=== PATIENT | female | born 1965 | race Caucasian/White ===

== ENCOUNTER 2016-11-21 12:37 | Emergency (ER) | payer BC ==
[2016-11-21 12:56] VITALS: BP 107/78
--- NOTE | 2016-12-11 20:30 | UC ---
daria Wolff Timothy, scribed for Nohemy Wong DO on 11/21/16 at 1350 . Abdominal Pain Female HPI - HPI Summary HPI Summary: Anita Munguia is a 51 yo female presenting to with 8/10 gradually increasing RLQ pain radiating to her lower back and down the back of her right leg for the past 2 days. She states April of last year she fell while jogging, and felt something snap. The pain from that fall dissipated quickly, but she is wondering if her current pain is related to her accident. She states sometimes her right knee comes out of place at night while she sleeps, causing her pain. She denies any other Sx. Her MHx includes DM and HIV. - History of Current Complaint Chief Complaint: UCAbdominalPain Stated Complaint: ABDOMINAL AND LEG PAIN Time Seen by Provider: 11/21/16 13:44 Hx Obtained From: Patient Hx Last Menstrual Period: HYSTERECTOMY ?: No Onset/Duration: Sudden Onset, Lasting Days, Still Present Timing: Constant Severity Initially: Moderate Severity Currently: Moderate Pain Intensity: 8 Pain Scale Used: 0-10 Numeric Location: Discrete At: RLQ Radiates: Yes Radiates to: Back, Other - back of right leg Aggravating Factor(s): Other: - position when sleeping Alleviating Factor(s): Other: - position when sleeping Associated Signs and Symptoms: Negative: Fever, Chest Pain, Blood in Stool Allergies/Adverse Reactions: Allergies Allergy/AdvReac Type Severity Reaction Status Date / Time No Known Allergies Allergy Verified 12/07/16 15:53 Home Medications: Home Medications Actraphane 12 mg SUBCUT BID 11/21/16 [History] PMH/Surg Hx/FS Hx/Imm Hx Endocrine History Of: Reports: Diabetes - Surgical History Surgical History: Yes Surgery Procedure, Year, and Place: APPENDECTOMY, HYSTERECTOMY - Family History Known Family History: Positive: Diabetes Negative: Cardiac Disease, Hypertension - Social History Alcohol Use: Rare Substance Use Type: None Smoking Status (MU): Never Smoked Tobacco Review of Systems Constitutional: Negative Skin: Negative Eyes: Negative ENT: Negative Respiratory: Negative Cardiovascular: Negative Gastrointestinal: Abdominal Pain - raditing to back and back of right leg Genitourinary: Negative Motor: Negative Neurovascular: Negative Musculoskeletal: Other: - pain in right knee Neurological: Negative Psychological: Negative All Other Systems Reviewed And Are Negative: Yes Physical Exam Triage Information Reviewed: Yes Appearance: Well-Appearing, No Pain Distress, Well-Nourished Vital Signs: Initial Vital Signs Temp 98.3 F 11/21/16 12:50 Pulse 86 11/21/16 12:50 Resp 16 11/21/16 12:50 BP 107/78 11/21/16 12:50 Pulse Ox 100 11/21/16 12:50 Vital Signs Reviewed: Yes Eyes: Positive: Conjunctiva Clear. Negative: Discharge ENT: Positive: Hearing grossly normal. Negative: Muffled/hoarse voice Neck: Positive: Supple, Nontender Respiratory: Positive: Lungs clear, Normal breath sounds, No respiratory distress, No accessory muscle use Cardiovascular: Positive: RRR, No Murmur Abdomen Description: Positive: Nontender, Soft, Other: - palpatory exam in the recumbent position was negative. Negative: Distended, Guarding Bowel Sounds: Positive: Present Musculoskeletal: Positive: ROM Limited @ - forward and backward bending, left side bending, Other: - piriformis tender point. Perispinal spasm in the lumbar region. Negative: ROM Intact Neurological Exam: Normal - A&Ox3, CN II-XII INTACT, SENSORY MOTOR INTACT, REFLEXES INTACT, NO CEREBELLAR SIGNS, FACIAL SYMMETRY Neurological: Positive: Alert, Muscle Tone Normal Psychological Exam: Normal Psychological: Positive: Age Appropriate Behavior Skin Exam: Normal Re-Evaluation - Re-Evaluation First Eval Re-Evaluation Time: 15:12 Change: Unchanged Comment: Pt is agreeable to be discharged Abd Pain Female Course/Dx - Course Course Of Treatment: Anita Munguia is a 51 yo female presenting to [facility] with RLQ abd pain radiating to her back and down the back of her right leg. After clinical examination, she will be discharged home with sciatica, abdominal pain , and piriformis syndrome and appropriate instructions. - Differential Dx/Diagnosis Differential Diagnosis: Ectopic , , Urinary Tract Infection, Other - sciatica, piriformis syn, glycosuria, abd pain Provider Diagnoses: sciatica, abd pain, piriformis syndrome, hyperglycemia Discharge - Discharge Plan Condition: Stable Disposition: HOME Prescriptions: Cyclobenzaprine TAB* [Flexeril TAB*] 10 mg PO TID PRN #30 tab PRN Reason: Pain traMADol TAB* [Ultram*] 50 mg PO Q8H PRN #14 tab MDD 3 TABS PRN Reason: Pain Patient Education Materials: Sciatica (ED), Abdominal Pain (ED), Piriformis Syndrome (ED), Diabetic Hyperglycemia (ED) Referrals: [facility] [Outside] - 2 Days Additional Instructions: ALTERNATE HOT AND COLD ONE RIGHT AFTER THE OTHER FOR 10-20 MINUTES EACH. ICE PACKS: Apply ice packs frequently against the painful area. Many different schedules are recommended, such as "20 minutes on, 20 minutes off" or "one hour ice, two hours rest." If you need to work, you may need to go longer between ice treatments. You should plan to have the area ice packed AT LEAST one fourth of the time. The ice should be applied over the wrap, tape, or splint, or over a layer of cloth -- not directly against the skin. Some ice bags have a built-in cloth and can be put directly on the skin. WARM PACKS: Apply gentle heat (such as a heating pad or hot water bottle) for about 20 to 30 minutes about every two hours -- at least four times daily. Warmth and elevation will help you make a more rapid recovery, and will ease the pain considerably. Do not use HOT heat, and never apply heat for longer than 30 minutes. The continuous heat can invisibly damage skin and muscles -- even when no burn is seen on the surface. Damaged muscles can make you MORE sore. ULTRAM (tramadol hydrochloride): Ultram is an excellent drug for pain relief. It is not a narcotic, but it works in a similar way. Ultram can take up to two hours for full effect. Although not addicting, Ultram is best avoided in patients with a history of drug abuse. Ultram should not be used with alcohol, sleeping pills, or narcotics. If you're prone to seizures, Ultram can make you more likely to have a seizure. Ultram can be hazardous when combined with MAO-inhibitor antidepressants (such as Nardil or Parnate). Be sure your doctor is aware of all medicines you are taking. Persons with severe liver or kidney disease should increase the time between doses of Ultram. Discuss this with your doctor if you're uncertain. Side effects of Ultram can include dizziness, nausea, constipation, sleepiness, and itching. (These side effects are also seen with narcotic pain medicines.) Please call your doctor if you have other disturbing effects. YOU HAVE BEEN REFERRED TO PHYSICAL THERAPY YOU WOULD LIKELY BENEFIT FROM OSTEOPATHIC TREATMENT. WE RECOMMEND THAT YOU FIND AN OSTEOPATHIC PHYSICIAN IN YOUR AREA WHO FOCUSES EXCLUSIVELY ON OSTEOPATHIC MANIPULATIVE MEDICINE WITH EXPERTISE IN MYOFACIAL, LYMPHATIC, VISCERAL AND INTEROSSEOUS WORK The documentation as recorded by the daria villalpando Timothy accurately reflects the service I personally performed and the decisions made by me, Nohemy Wong DO.
== END 2016-11-21 15:25 | disposition home or self-care (01) ==
LOC: UCEAST 12:37
DX: M54.30 Sciatica, unspecified side (principal); R10.31 Right lower quadrant pain; E11.65 Type 2 diabetes mellitus with hyperglycemia; Z79.4 Long term (current) use of insulin
CPT/HCPCS: 81002; 99202; G0463

== ENCOUNTER 2017-01-06 07:04 | Day surgery (SDC) | payer BC ==
[~2017-01-06 07:04] MED LIST: Buffered Lidocaine 1% SYRIN* 3 ML/SYR SYRINGE INTRADERM ONE; Bupivacaine 0.5% W/EPI SDV* 30 ML VIAL ONE; Dexamethasone IV* 4 MG/ML 1 ML (4 MG) IV SLOW PU ONE; EPINEPHrine AMP 1 MG/ML ONE; Famotidine IV* 10 MG/ML 2 ML (20 mg) IV ONE
[2017-01-06] MEDS ORDERED: Famotidine IV* 10 MG/ML 2 ML (20 mg) ONE (07:05)
[2017-01-06] MEDS ORDERED: Dexamethasone IV* 4 MG/ML 1 ML (4 MG) ONE (07:05)
[2017-01-06] MEDS ORDERED: ceFAZolin 2 GM PREMIX(*) 2 GM/50 ML BAG IVPB ONE (07:05)
[2017-01-06] MEDS ORDERED: Lidocaine 2% PF* 5 ML VIAL ONE (08:22)
[2017-01-06] MEDS ORDERED: Ketorolac INJ* 30 MG/ML 1 ML VIAL ONE (08:22)
[2017-01-06] MEDS ORDERED: fentaNYL* 50 MCG/ML 5 ML VIAL (250 MCG VIAL) ONE (08:22)
[2017-01-06] MEDS ORDERED: Midazolam* 1 MG/ML 5 ML VIAL (5 MG) ONE (08:22)
[2017-01-06] MEDS ORDERED: Ondansetron INJ* 2 MG/ML VIAL ONE (08:22)
[2017-01-06] MEDS ORDERED: Propofol* 10 MG/ML 20 ML BTL IV PUSH ONE (08:22)
[2017-01-06] MEDS ORDERED: oxyCODONE/Acetamin 5/325 MG* TAB PO PRN (09:28)
[2017-01-06] MEDS ORDERED: Ondansetron INJ* 2 MG/ML VIAL IV PRN (09:28)
[2017-01-06] MEDS ORDERED: fentaNYL* 50 MCG/ML 2 ML VIAL (100 MCG VIAL) IV PRN (09:28)
[2017-01-06 10:53] VITALS: BP 112/74
--- NOTE | 2017-01-08 17:39 | OP ---
OPERATIVE REPORT: DATE OF OPERATION: 01/06/17 DATE OF : 69 SURGEON: Alphonso Jones MD FREIGHT RATE ANALYST: ADRIANE Ruiz ANESTHESIOLOGIST: Price Herrera MD PRE-OP DIAGNOSES: 1. Right knee medial meniscus tear. 2. Right knee anterior cruciate ligament deficiency. POST-OP DIAGNOSES: 1. Right knee medial meniscus tear. 2. Right knee anterior cruciate ligament deficiency. 3. Right anterior synovitis. OPERATIVE PROCEDURE: 1. Right knee arthroscopic partial medial meniscectomy. 2. Right knee arthroscopic evaluation of ACL. 3. Right knee arthroscopic anterior synovectomy, right knee. 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 The patient informed me in clinic that she had injured herself while running in June of 2016, 6 m onths prior to the procedure. She was running on a steep surface and fell on to medial aspect of he r right knee. This caused much knee pain and afterwards the patient limped, but also had right lowe r quadrant pain. The patient was initially worked up in the hospital and at [facility] for the right lower quadrant pain, although she was never given a specific diagnosis for this. 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 The patient treated that June knee in [facility] with NSAIDs, oral. The patient was given a PT prescription, but did not go secondary to to [facility] [employer] insurance issues. The patient does have diabetes mellitus. The patient came in to me complaining of some locking of t he knee in flexion. She stated to me that while her knee was not giving out on her with her activit ies of daily living, the knee would "pop out of position." She demonstrated what she would do to re medy this. She would restore correct position as she would describe it by hyperflexing her right kn ee and then rotating it dramatically to feel a disengagement. 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 The patient stopped running or even long wa lks secondary to knee discomfort, worst with these mechanical locking events, but also some pain mariama bally that affected her function. The patient's plan is to return to [facility] on 01/16/17 for 2 years. The patient said she can use crutches and she does not plan to return to any pivoting sports such as soccer. The patient mostly wants to walk without limping and locking of knee and hopes to possibly return to either long walks or jogging for exercise. On exam, the patient had medial joint line tenderness and a positive Rachel's test. She had a posi tive anterior drawer, Tootie's test, and the pivot shift maneuver produced a shift, but no pain. X -ray demonstrated trace spurring of the patella as well as of the tibial spines. MRI demonstrated a displaced bucket handle medial meniscus tear with displacement of the fragment into the intercondyl ar notch. I measured the width of the remaining non-torn rim of medial meniscus in every coronal pl ane slice. I measured the thickness of the rim to be anywhere between 4.3 and 5.6 mm. No ACL is vi sible on the MRI indicative of a chronic tear and no bone bruises were visible, ACL stereotypic bone bruises or other bone bruises. We discussed multiple treatment options including physical therapy without surgery, medial meniscus treatment surgery, and ACL reconstruction surgery with medial meniscus treatment. The patient decid ed she did not want or need her ACL reconstructed. That seems appropriate especially given the [facility]'s imminent departure and long flight in 1-1/2 weeks. The patient was interested in surgical man agement of her medial meniscus tear. In the office, I discussed partial medial meniscectomy and med ial meniscal repair. I told her about the short versus long- term implications of each treatment. The patient told me to do whatever is most appropriate clinically, resect or repair. Certainly fact ors disfavoring repair that I acknowledge preoperatively, included her age and HIV status, together with the width of over 4 mm of peripheral rim of meniscal tissue, together with the unclear access t o orthopedic arthroscopy care in [facility] should repair fail. Discussed in preoperative holding with the patient and two of her friends the patient's imminent dep arture from the [facility] to [facility] and how to accommodate for her upcoming air travel. I de cided that I would anticoagulate with aspirin for a longer than normal period, 3 weeks instead of 2 weeks. I would also look in to getting the patient compression socks or stockings to wear with the air travel. We again discussed repair versus partial meniscectomy. I asked the patient and her friends about the patient's access to orthopedic care in [facility]. It sounded as if there were orthopedists available, but it was not clear that any had orthoscopic exper ience and capabilities currently. ANTIBIOSIS: Ancef 2 g IV. IV FLUIDS: 800 cc crystalloid. TOURNIQUET TIME: 39 minutes at 300 mmHg. COMPLICATIONS: None. EBL: Minimal. SPECIMEN: None. IMPLANTS: None. DESCRIPTION OF PROCEDURE: Preoperative written consent was obtained. Operative extremity was marke d in preoperative holding. Benefits, risks, and potential complications of procedure were reviewed again. The patient was taken back to the operating room and placed supine on the operating room tab le. The patient was sedated and LMA was placed. A proximal thigh tourniquet was placed. The right distal thigh was placed in a circumferential thigh tapia. The table was elevated and the foot of the table was dropped. The right lower extremity was prepped and draped. Surgical time-out was per formed. A right knee anterolateral knee arthroscopy portal was established using standard technique. An art hroscope was entered into the knee and diagnostic arthroscopy was commenced. The patellofemoral com partment was noted to have no articular cartilage damage. I then proceeded to the medial compartmen t. A clear displaced bucket handle meniscal tear with displacement into the notch was visible. I t hen proceeded to the intercondylar notch, where the ACL was not visible and the lateral wall of the intercondylar notch was there. The lateral compartment had no meniscal tear and no articular cartil age damage. I then returned to the medial compartment. I made an anteromedial knee arthroscopy portal under direct visualization. I entered a probe into t he knee, arthroscopic, and reduced the meniscus tear. I looked at the quality of the meniscus tissue. While not pristine, it did not also look horribly t orn up. With the tear reduced and displaced, I visualized as best as I could, the peripheral rim of tissue of the body and posterior horn of the medial meniscus, viewing with the arthroscope, both in the anteromedial and anterolateral portals. It was clear that the tear was not at the meniscocapsu lar junction. There was still a rim about the body and posterior horn of the medial meniscus. This rim appeared to be at least 3 mm in width. Given the width of remaining peripheral rim of meniscus , along with the patient's medical and social factors, partial meniscectomy appeared the most approp riate course of action and was decided upon as my treatment. I removed the torn piece of meniscus u sing meniscal biters and arthroscopic shaver. I confirmed the stability of the meniscal rim subsequ ently with the arthroscopic probe and was happy with the remaining rim along the entire length of th e meniscus. I also, prior to the work on the medial meniscus, had performed synovectomy anteriorly for some inflamed synovium both to improve visibility and minimize anterior knee pain. Fluid and in struments were removed from the knee. The skin incisions were closed with figure-of-8 stitches usin g nylon 4-0 suture. Xeroform, 4x4s, ABD, sterile Webril, 2 Rambo bandages. Tourniquet was dropped. DISPOSITION: The patient was discharged home when medically stable. The patient was given a prescr iption for Percocet postoperatively. She was also placed on aspirin 325 mg p.o. b.i.d. x3 weeks. T he patient will follow up with me prior to 10 days postoperatively just prior to [facility]. [id number]/[facility] #: [id number]
== END 2017-01-06 10:51 | disposition home or self-care (01) ==
LOC: OR 07:04
PROVIDERS: ATTEND Orthopaedic Surgery
DX: M23.203 Derangement of unspecified medial meniscus due to old tear or injury, right knee (principal); B20 Human immunodeficiency virus [HIV] disease; E11.8 Type 2 diabetes mellitus with unspecified complications; Z79.4 Long term (current) use of insulin; Z79.84 Long term (current) use of oral hypoglycemic drugs
CPT/HCPCS: 80307; J0171; J0690; J1100; J1885; J2250; J2405; J2704; J3010